=== PATIENT | female | born 1950 | race Caucasian/White ===

== ENCOUNTER 2017-04-26 22:31 | Observation (INO) | payer OTHER, MEDICARE ==
[~2017-04-26] VITALS: Ht 171.4 cm; Wt 57.8 kg
[2017-04-26 23:45] LABS: HEMATOCRIT 40.6 % (36.0-46.0); MCH 31.6 PG (29.0-34.0); MCHC 34.5 G/DL (30.0-36.0); MCV 91.6 FL (83-99); PLATELET COUNT 298 K/uL (156-360); RBC DIS.WIDTH-CV 12.8 % (11.8-14.6); RBC DIS.WIDTH-SD 43.1 % (39-53); RED BLOOD COUNT 4.43 M/uL (3.80-5.20); WHITE BLOOD COUNT 13.7 K/uL (4.1-10.2)
[2017-04-26 23:54] LABS: CHLORIDE 107 mEq/L (99-109); POTASSIUM 3.3 mEq/L (3.7-5.4); SODIUM 140 mEq/L (136-147)
[2017-04-26 23:57] LABS: GLUCOSE 142 mg/dL (70-99)
[2017-04-26 23:58] LABS: ANION GAP 15 MEQ/L (2-14)
[2017-04-26 23:59] LABS: TOTAL BILIRUBIN 1.2 mg/dL (0.0-1.0)
[2017-04-27] LABS: ALKALINE PHOSPHATASE 95 IU/L (3-129)
[2017-04-27 00:01] LABS: UREA NITROGEN (BUN) 25 mg/dL (9-23)
[2017-04-27 00:10] LABS: GFR ESTIMATE (CALCULATED) > 59 mL/min/
[2017-04-27 05:37] LABS: ADD MIUA? NO; BILIRUBIN NEGATIVE; BLOOD NEGATIVE; COLOR YELLOW ((YELLOW)); GLUCOSE (STRIP) NEGATIVE; KETONES 5; LEUKOCYTES NEGATIVE; NITRITE NEGATIVE; PROTEIN (STRIP) NEGATIVE; UCUL ADDED? NO; UROBILINOGEN 0.2 MG/DL (0.2-1.0)
[2017-04-27 05:43] VITALS: BP 108/54
[2017-04-27 07:34] LABS: C DIFF TOXIN NEGATIVE (NEGATIVE)
[2017-04-27 07:35] LABS: PROBE CHECK PASS; SPECIMEN PROCESSING CONTROL PASS
[2017-04-27 08:37] VITALS: BP 99/56
[2017-04-27 08:47] LABS: HEMATOCRIT 33.4 % (36.0-46.0); MCH 31.4 PG (29.0-34.0); MCHC 34.1 G/DL (30.0-36.0); MEAN PLAT.VOLUME 10.2 uM^3 (9.5-12.4); PLATELET COUNT 217 K/uL (156-360); RBC DIS.WIDTH-SD 44.3 % (39-53); RED BLOOD COUNT 3.63 M/uL (3.80-5.20); WHITE BLOOD COUNT 8.4 K/uL (4.1-10.2)
[2017-04-27 09:09] LABS: ANION GAP 7 MEQ/L (2-14); CHLORIDE 114 MEQ/L (99-109); GFR ESTIMATE (CALCULATED) > 59 mL/min/; GLUCOSE 110 mg/dL (70-99); POTASSIUM 3.6 MEQ/L (3.7-5.4); SAMPLE HEMOLYSIS CHECK 0; SAMPLE ICTERIC CHECK 0; SAMPLE LIPEMIA CHECK 0; SODIUM 143 MEQ/L (136-147); UREA NITROGEN (BUN) 18 mg/dL (9-23)
[2017-04-27 11:34] VITALS: BP 85/51
[2017-04-27 15:43] VITALS: BP 96/50
[2017-04-27 19:19] VITALS: BP 89/50
[2017-04-28 05:19] LABS: HEMATOCRIT 32.1 % (36.0-46.0); MCH 30.7 PG (29.0-34.0); MCHC 32.1 G/DL (30.0-36.0); MCV 95.5 FL (83-99); MEAN PLAT.VOLUME 10.3 uM^3 (9.5-12.4); PLATELET COUNT 181 K/uL (156-360); RBC DIS.WIDTH-CV 13.3 % (11.8-14.6); RBC DIS.WIDTH-SD 46.9 % (39-53); RED BLOOD COUNT 3.36 M/uL (3.80-5.20); WHITE BLOOD COUNT 4.8 K/uL (4.1-10.2)
[2017-04-28 06:02] LABS: ANION GAP 5 MEQ/L (2-14); CHLORIDE 114 MEQ/L (99-109); GFR ESTIMATE (CALCULATED) > 59 mL/min/; GLUCOSE 91 mg/dL (70-99); POTASSIUM 4.1 MEQ/L (3.7-5.4); SAMPLE HEMOLYSIS CHECK 0; SAMPLE ICTERIC CHECK 0; SAMPLE LIPEMIA CHECK 0; SODIUM 141 MEQ/L (136-147); UREA NITROGEN (BUN) 10 mg/dL (9-23)
[2017-04-28 08:04] VITALS: BP 87/51
[2017-04-28 11:55] VITALS: BP 97/52
== END 2017-04-28 13:59 | disposition home or self-care (01) ==
LOC: EME 22:31 → EDOF 04-27 04:36 → 5WEST 04-27 04:36 → ENRESERV 04-27 04:37 → 5WEST 04-27 05:22 → ENPENDDIS 04-28 → 5WEST 04-28 13:59
PROVIDERS: Hospitalist; Nurse Practitioner Adult Health
DX: R11.2 Nausea with vomiting, unspecified (principal); R19.7 Diarrhea, unspecified; E87.6 Hypokalemia; E86.0 Dehydration; R41.82 Altered mental status, unspecified; E87.2 Acidosis; E06.3 Autoimmune thyroiditis; E78.5 Hyperlipidemia, unspecified; Z86.011 Personal history of benign neoplasm of the brain
CPT/HCPCS: 70450; 74176; 80048; 80053; 81003; 85027; 87493; 87502; 99281; 99285; G0378; J1650; J2405; J3480; J7030